=== PATIENT | male | born 1980 | race Caucasian/White ===

== ENCOUNTER → 2023-05-15 | Outpatient (CLI) | payer BC ==
--- NOTE | 2023-05-15 09:30 | US ---
EXAMINATION TYPE: US abdomen complete DATE OF EXAM: 05/15/2023 COMPARISON: NONE CLINICAL INDICATION: Male, 43 years old with history of R10.12 LEFT UPPER QUADRANT PAIN; postprandial LUQ pain x 4years, recently put on IBS meds 1 month prior, pain is resolving since then TECHNIQUE: Multiple sonographic images of the abdomen are obtained. FINDINGS: EXAM MEASUREMENTS: Liver Length: 14.5 Gallbladder Wall: 0.2m CBD: 0.3m Spleen: 10.0 Right Kidney: 10.8x4.5x5.9 Left Kidney: 10.3x6.4x4.6 DRILL INSTRUCTOR NOTES: Pancreas: Tail obscured by overlying bowel gas Liver: wnl Gallbladder: wnl Evidence for sonographic Alejandro's sign: No CBD: wnl Spleen: wnl Right Kidney: No hydronephrosis or masses seen Left Kidney: No hydronephrosis or masses seen Upper IVC: wnl Abd Aorta: wnl The liver is homogenous. The intrahepatic portion of the IVC and proximal abdominal aorta are within normal limits. There is no evidence of cholelithiasis. Common bile duct is unremarkable. The visu alized portions of the pancreas are homogenous. The spleen is unremarkable. Kidneys are symmetric a nd free of hydronephrosis. No renal lesions are seen. IMPRESSION: No evidence for acute process.
[2023-05-15 20:31] LABS: Gliadin AB IgA, Deaminated Negative (Negative); Gliadin AB IgA, Unit 0.6 U/mL; Gliadin AB IgG, Deaminated Negative (Negative); Gliadin AB IgG, Unit 0.5 U/mL
== END | disposition home or self-care (01) ==
LOC: RADUSWWP 08:08
PROVIDERS: ATTEND Internal Medicine Gastroenterology
DX: R10.12 Left upper quadrant pain (principal)
CPT/HCPCS: 76700; 83516; 85652; 86140